=== PATIENT | male | born 1945 | race Caucasian/White ===

== ENCOUNTER → 2016-11-10 | Outpatient (CLI) | payer MEDICARE, OTHER | END | disposition home or self-care (01) | LOC: GMAB 16:57 | PROVIDERS: ATTEND Family Medicine | DX: N40.3 Nodular prostate with lower urinary tract symptoms (principal) ==

== ENCOUNTER → 2016-11-11 | Outpatient (CLI) | payer MEDICARE, OTHER ==
--- NOTE | 2016-11-11 09:36 | CT ---
EXAM DESCRIPTION: Abdomen/Pelvis w/wo Contrast CLINICAL HISTORY: MICROSOPIC HEMATURIA COMPARISON: None. TECHNIQUE: CT of the abdomen and pelvis was performed with and without IV contrast.. Multiple axial images and multiplanar reconstructions were generated. FINDINGS: Atelectasis versus scar within the right lung base. Degenerative change of the spine noted. Multiple bilateral renal stones are noted. The largest stone is seen within the mid segment of the left kidney and measures approximately 6 mm in diameter. Bilateral renal cysts noted. The largest is seen within the right midsegment of kidney and measures 1.5 cm in diameter. No ureteral stone noted. The prostate is very large with a prominent median lobe. The prostate measures 5.6 cm in the transverse dimension. Urinary bladder is grossly unremarkable. Granulomatous disease of the spleen. The liver is unremarkable. Gallbladder is present. Portal vein is widely patent. Bilateral adrenal glands are normal. The pancreas is normal. The small bowel is nonobstructed. The colon demonstrates evidence of diverticulosis. No lymphadenopathy on today's study. IMPRESSION: 1. The prostate is enlarged measuring 5.6 cm in diameter with a prominent median lobe which indents the trigone of the urinary bladder. 2. Bilateral renal stones noted, but no evidence of obstruction at this time. The largest stone measures 6 mm in diameter and is noted within the mid segment of left kidney. 3. Diverticulosis of the colon, spondylosis of the lumbar spine and atherosclerosis of a nonaneurysmal abdominal aorta are noted. Electronically signed by: Idris Hills MD 11/11/2016 9:36 AM CDT
== END | disposition home or self-care (01) ==
LOC: CT 08:04
PROVIDERS: ATTEND Family Medicine
DX: R31.21 Asymptomatic microscopic hematuria (principal); E29.1 Testicular hypofunction

== ENCOUNTER 2017-06-09 14:52 | Emergency (ER) | payer MEDICARE, OTHER ==
--- NOTE | 2017-06-09 15:22 | ED.PDOC ---
History of Present Illness - General Chief Complaint: GI Problem Stated Complaint: blood in stools Time Seen by Provider: 06/09/17 14:56 Source: patient, RN notes reviewed, Vital Signs reviewed, RN/MD - Spoke with PCP , Dr. García Exam Limitations: no limitations - History of Present Illness Initial Comments: Patient comes in from PCP's office with c/o black, bloody stools X 5 days and Hgb of 5.3. + fatigue. Mild chest pain - intermittent. Had EGD and colonoscopy w/ Dr. Resendiz. Timing/Duration: constant - X5 days Severity: moderate Improving Factors: nothing Worsening Factors: nothing Associated Symptoms: chest pain, malaise, shortness of breath Allergies/Adverse Reactions: Allergies NO KNOWN ALLERGY Allergy (Verified 06/09/17 15:17) Home Medications: Ambulatory Orders Aspirin [Barbie Low Dose] 81 mg PO DAILY 06/09/17 Metoprolol Tartrate 25 mg PO BID 06/09/17 Rosuvastatin Calcium 20 mg PO DAILY 06/09/17 Tamsulosin [Flomax] 0.4 mg PO BEDTIME 06/09/17 Review of Systems - Review of Systems Constitutional: States: malaise EENTM: States: no symptoms reported Respiratory: States: short of breath Cardiology: States: chest pain Gastrointestinal/Abdominal: States: see HPI, other - hematocezia. Denies: abdominal pain, diarrhea, nausea, vomiting Musculoskeletal: States: no symptoms reported Skin: States: no symptoms reported Neurological: States: no symptoms reported Hematologic/Lymphatic: States: see HPI, anemia All other Systems: No Change from Baseline Past Medical History (General) - Patient Medical History Hx Cardiac Disorders: Yes - Stint Hx Congestive Heart Failure: No Hx Hypertension: Yes Hx Diabetes: No - Vaccination History Hx Influenza Vaccination: No Hx Pneumococcal Vaccination: No - Social History Hx Tobacco Use: No Family Medical History - Family History Father Family History: Unknown Living Status: Unknown Physical Exam - Physical Exam General Appearance: Alert, Comfortable, No apparent distress, Well Developed, Well Groomed, Well Hydrated, Well Nourished Neck: supple, normal inspection Respiratory: lungs clear, normal breath sounds, no respiratory distress, no accessory muscle use Cardiovascular/Chest: regular rate, rhythm, no gallop, no JVD, no murmur Gastrointestinal/Abdominal: normal bowel sounds, non tender, soft, no organomegaly, no pulsatile mass Rectal Exam: normal rectal tone, black stool, heme positive stool Extremity: normal inspection Neurologic: alert, normal mood/affect, oriented x 3 Skin Exam: normal color, warm/dry Comments: Vital Signs 06/09/17 15:12 Temperature 96.9 F L Pulse Rate [ 101 H Right Brachial] Respiratory 20 Rate Blood Pressure 106/69 [Right Arm] O2 Sat by Pulse 98 Oximetry Progress - Progress Progress: 06/09/17 17:15 Started 1st pint of PRBC's - Results/Orders Results/Orders: Laboratory Tests 06/09/17 06/09/17 06/09/17 15:25 15:25 15:45 WBC 7.8 RBC 1.99 L Hgb 5.9 L* Hct 17.7 L MCV 88.9 MCH 29.6 MCHC 33.6 RDW 14.3 Plt Count 177 MPV 9.6 Absolute Neuts (auto) 4.50 Absolute Lymphs (auto) 2.00 Absolute Monos (auto) 0.80 Absolute Eos (auto) 0.50 H Absolute Basos (auto) 0.10 Neutrophils % 57.1 Lymphocytes % 25.5 Monocytes % 9.6 H Eosinophils % 6.6 H Basophils % 1.2 Sodium 138 Potassium 4.1 Chloride 106 Carbon Dioxide 27 Anion Gap 9.1 L BUN 23 H Creatinine 1.03 BUN/Creatinine Ratio 22.3 H Random Glucose 103 Serum Osmolality 279.6 Calcium 8.4 Total Bilirubin 0.3 AST 42 ALT 48 Alkaline Phosphatase 47 Serum Total Protein 5.8 L Albumin 3.4 Globulin 2.4 Albumin/Globulin Ratio 1.4 Stool Occult Blood Patient ABO/Rh O POSITIVE Antibody Screen Negative Crossmatch See Detail 06/09/17 15:53 WBC RBC Hgb Hct MCV MCH MCHC RDW Plt Count MPV Absolute Neuts (auto) Absolute Lymphs (auto) Absolute Monos (auto) Absolute Eos (auto) Absolute Basos (auto) Neutrophils % Lymphocytes % Monocytes % Eosinophils % Basophils % Sodium Potassium Chloride Carbon Dioxide Anion Gap BUN Creatinine BUN/Creatinine Ratio Random Glucose Serum Osmolality Calcium Total Bilirubin AST ALT Alkaline Phosphatase Serum Total Protein Albumin Globulin Albumin/Globulin Ratio Stool Occult Blood Positive Patient ABO/Rh Antibody Screen Crossmatch Departure - Departure Clinical Impression: Anemia due to blood loss, acute Gastrointestinal bleeding Qualifiers: GI bleed type/associated pathology: melena Qualified Code(s): K92.1 - Melena Time of Disposition: 17:21 Disposition: Transfer to Hospital Condition: Poor Departure Forms: ED Discharge - Pt. Copy, Patient Portal Self Enrollment Referrals: Jose García MD [Primary Care Provider] - 1-2 Weeks Home Medications: Ambulatory Orders Aspirin [Barbie Low Dose] 81 mg PO DAILY 06/09/17 Metoprolol Tartrate 25 mg PO BID 06/09/17 Rosuvastatin Calcium 20 mg PO DAILY 06/09/17 Tamsulosin [Flomax] 0.4 mg PO BEDTIME 06/09/17 Transfer to Outside Facility - Transfer Information Accepting Provider:: Dr. Sina Block - Hospitalist Accepting Facility: [facility] Reason for Transfer: required specialist not available
[2017-06-09] MEDS ORDERED: SODIUM CHLORIDE 0.9% 1000ML 1,000 ML IVS ONE (15:52)
[2017-06-09] MEDS ORDERED: SODIUM CHLORIDE 0.9% 250ML 250 ML ONE (16:55)
[2017-06-09 18:18] VITALS: BP 109/69
[2017-06-09 18:41] VITALS: TEMP 97.6; O2SAT 94
== END 2017-06-09 18:35 | disposition short-term general hospital (02) ==
LOC: ER 14:52
DX: K92.1 Melena (principal); D62 Acute posthemorrhagic anemia; I10 Essential (primary) hypertension; Z79.82 Long term (current) use of aspirin; Z79.899 Other long term (current) drug therapy; Z98.61 Coronary angioplasty status
CPT/HCPCS: 36415; 80053; 82270; 85025; 86850; 86900; 86901; 86922; J7030; J7050; P9016

== ENCOUNTER → 2019-02-15 | Outpatient (CLI) | payer MEDICARE, OTHER | LOC: GMAE 10:45 | PROVIDERS: ATTEND Family Medicine | DX: R53.83 Other fatigue (principal); I10 Essential (primary) hypertension ==